=== PATIENT | female | born 1960 | race African-American/Black ===

== ENCOUNTER 2021-01-17 08:56 | Outpatient (CLI) | payer OTHER | END 2021-01-17 08:57 | disposition home or self-care (01) | LOC: CSHCT 08:56 | PROVIDERS: ATTEND Obstetrics & Gynecology Gynecologic Oncology | DX: C54.1 Malignant neoplasm of endometrium (principal); D18.03 Hemangioma of intra-abdominal structures; N63.10 Unspecified lump in the right breast, unspecified quadrant; N63.20 Unspecified lump in the left breast, unspecified quadrant; N85.2 Hypertrophy of uterus | CPT/HCPCS: 71260; 74177; 82565 ==

== ENCOUNTER 2022-06-22 10:22 | Outpatient (CLI) | payer OTHER | END 2022-06-22 10:23 | disposition home or self-care (01) | LOC: CSHMAMMO 10:22 | PROVIDERS: ATTEND Family Medicine | DX: Z12.31 Encounter for screening mammogram for malignant neoplasm of breast (principal) | CPT/HCPCS: 77063; 77067 ==